=== PATIENT | female | born 1995 | race Caucasian/White ===

== ENCOUNTER 2019-07-25 11:49 | Emergency (ER) | payer MEDICAID ==
[~2019-07-25] VITALS: Ht 162.6 cm; Wt 61.2 kg
[2019-07-25 11:50] VITALS: BP_SYST 132
--- NOTE | 2019-07-25 11:50 | NUR ---
Patient triaged and placed in waiting room. VSS and patient appears in no acute distress at this time. Accompanied by SPOUSE, awaiting available bed, and MD notified of need for MSE.
--- NOTE | 2019-07-25 13:30 | NUR ---
Dr. Jo at bedside for examination.
--- NOTE | 2019-07-25 13:31 | NUR ---
Patient brought self to ED with c/o diarrhea x 4 days with painful hemorrhoids. Patient reported noting small amount of bleeding with diarrhea. Patient presented standing up by the side of the room and stated that it is painful for her to sit down. Patient complains of 7/10 pain on abdominal region as well as buttocks area. Patient does not complain of n/v at this time.
--- NOTE | 2019-07-25 13:50 | NUR ---
Patient lying in bed still complaining of pain at this time. Patient in no signs of distress.
[2019-07-25] MEDS ORDERED: MORPHINE 2 MG/ML INJ. SYRINGE IM ONE (14:00)
--- NOTE | 2019-07-25 14:20 | NUR ---
Patient given written and verbal discharge instructions and verbalizes understanding. ER MD discussed with patient the results and treatment provided. Patient in stable condition. ID arm band removed. Rx of anusol and norco given. Patient educated on pain management and to follow up with PMD. Pain Scale 5/10. Opportunity for questions provided and answered. Medication side effect fact sheet provided.
[2019-07-25 14:23] VITALS: BP_SYST 127
== END 2019-07-25 14:20 | disposition home or self-care (01) ==
LOC: SED 11:49
DX: K64.4 Residual hemorrhoidal skin tags (principal); R19.7 Diarrhea, unspecified; Z88.6 Allergy status to analgesic agent
CPT/HCPCS: 81025; 96372; 99283; J2270